=== PATIENT | female | born 1965 | race Caucasian/White ===

== ENCOUNTER 2022-03-23 10:12 | Emergency (ER) | END 2022-03-23 13:20 | disposition other institution (70) | LOC: JD.ED 10:12 | DX: H10.9 Unspecified conjunctivitis (principal); X10.2XXA Contact with fats and cooking oils, initial encounter | CPT/HCPCS: 99283 ==

== ENCOUNTER 2023-04-15 09:24 | Emergency (ER) | payer SELFPAY ==
[2023-04-15] MEDS ORDERED: Acetaminophen 325 MG Tab PO ONE (10:49)
[2023-04-15] MEDS ORDERED: Labetalol 100 MG/20 ML MDV IVPUSH ONE (12:47)
== END 2023-04-15 13:40 ==
LOC: JD.ED 09:24
DX: S06.2X0A Diffuse traumatic brain injury without loss of consciousness, initial encounter (principal); I10 Essential (primary) hypertension; E66.9 Obesity, unspecified; Z68.43 Body mass index [BMI] 50.0-59.9, adult; W00.0XXA Fall on same level due to ice and snow, initial encounter
CPT/HCPCS: 70450; 72125; 96374; 99285; A9270; J3490

== ENCOUNTER 2025-01-14 10:17 | Emergency (ER) | payer MEDICAID ==
[2025-01-14] MEDS ORDERED: Naloxone 0.4 MG/ML SDV IVPUSH PRN (10:47)
[2025-01-14 10:53] LABS: BASOPHILS ABSOLUTE AUTO 0.1 K/mm3 (0.0-0.2); BASOPHILS PERCENT AUTO 0.6 % (0.0-1.0); EOSINOPHILS ABSOLUTE AUTO 0.5 K/mm3 (0.0-0.4); EOSINOPHILS PERCENT AUTO 4.2 % (0.0-6.0); IMMATURE GRAN ABSOLUTE AUTO 0.04 K/mm3 (0.00-0.05); IMMATURE GRAN PERCENT AUTO 0.4 % (0.0-0.4); LYMPHOCYTES ABSOLUTE AUTO 3.0 K/mm3 (1.0-4.8); LYMPHOCYTES PERCENT AUTO 27.1 % (24.0-44.0); MEAN PLATELET VOLUME 9.4 fl (9.4-12.3); MONOCYTES ABSOLUTE AUTO 0.9 K/mm3 (0.0-0.8); MONOCYTES PERCENT AUTO 7.8 % (0.0-8.0); NEUTROPHILS ABSOLUTE AUTO 6.6 K/mm3 (1.8-7.7); NEUTROPHILS PERCENT AUTO 59.9 % (41.0-71.0); NRBC ABSOLUTE 0.00 (0.00-0.02); NRBC PERCENT 0.0 % (0.0-0.2); PLATELET COUNT,PLT 325 K/mm3 (150-400); RED BLOOD CELL COUNT 4.94 M/mm3 (4.10-5.30); WHITE BLOOD CELL COUNT,WBC 10.97 K/mm3 (3.9-11.3)
[2025-01-14 11:24] LABS: A/G RATIO 1.1 (1-2); ALANINE AMINOTRANSFERASE,ALT 31.0 U/L (14-59); ASPARTATE AMNIOTRANSFERASE,AST 21.0 U/L (15-37); BILIRUBIN TOTAL 0.6 mg/dL (0.2-1.0); BLOOD UREA NITROGEN,BUN 24.0 mg/dL (7-18); CARBON DIOXIDE,CO2 29.0 mEq/L (21-32); CHLORIDE,CL 101.0 mEq/L (98-107); CREATINE KINASE,CK 111.0 U/L (26-192); CREATININE 1.1 mg/dL (0.55-1.02); EST CRCL DRUG DOSING (CG) 46.96 mL/min; ESTIMATED GFR 58.0 mL/min (>60); GLUCOSE RANDOM 117.0 mg/dL (70-99); POTASSIUM,K 3.9 mEq/L (3.5-5.1); PROTEIN TOTAL,TP 7.2 g/dl (6.4-8.2); SODIUM,NA 139.0 mEq/L (136-145); TROPONIN I HIGH SENSITIVITY 8.0 pg/mL (<=51)
[2025-01-14] MEDS: Iopamidol 612 MG/ML 100 ML Bottle IVPUSH ONE (11:25)
[2025-01-14] MEDS: Sodium Chloride 0.9% 10 ML Syringe FLUSH ONE (11:25)
[2025-01-14 12:02] LABS: APPEARANCE,URINE CLEAR (Clear); GLUCOSE,URINE NEGATIVE (Negative); OCCULT BLOOD,URINE TRACE-INTACT (Negative)
[2025-01-14] MEDS: Ondansetron 4 MG/2 ML SDV IVPUSH ONE (12:06)
[2025-01-14 12:07] LABS: BUPRENORPHINE SCREEN,URINE NEGATIVE (CUTOFF=10); METHADONE SCREEN, URINE NEGATIVE (CUTOFF=200); METHAMPHETAMINES SCREEN, URINE NEGATIVE (CUTOFF=500); OXYCODONE SCREEN,URINE NEGATIVE (CUT0FF=100); THC SCREEN,URINE 20 NG/ML NEGATIVE (CUTOFF=50)
[2025-01-14] MEDS: fentaNYL 100 MCG/2 ML SDV IVPUSH ONE (12:08)
[2025-01-14 12:09] LABS: AMPHETAMINES SCREEN, URINE NEGATIVE (CUTOFF=500)
[2025-01-14 12:29] LABS: SQUAMOUS EPITHELIAL CELLS,UR 0-5 /hpf (0-5)
== END 2025-01-14 14:26 | disposition home or self-care (01) ==
LOC: JD.ED 10:17
DX: N28.9 Disorder of kidney and ureter, unspecified (principal); E83.42 Hypomagnesemia; R91.1 Solitary pulmonary nodule; R93.5 Abnormal findings on diagnostic imaging of other abdominal regions, including retroperitoneum; I10 Essential (primary) hypertension
CPT/HCPCS: 36415; 71260; 74177; 80053; 80306; 81001; 82550; 83690; 83735; 84484; 85025; 93005; 96365; 96366; 96375; 99284; J2405; J3010; J3475; J7030; Q9967